=== PATIENT | female | born 1965 | race Two or more races ===

== ENCOUNTER 2023-09-18 13:45 | Emergency (ER) | payer OTHER ==
[~2023-09-18] VITALS: Ht 165.1 cm; Wt 83.9 kg
[~2023-09-18 13:45] MED LIST: MACROBID 100 M100 MG PO; SOTALOL120 MG; URIN D.S. TABLE1 TAB PO; WELLBUTRIN XL300 MG; WELLBUTRIN XL300 MG PO
[2023-09-18] MEDS ORDERED: SYNTHROID50 MCG (14:53)
[2023-09-18] MEDS ORDERED: FAMOTIDINE/PF 20 MG/2 ML VIAL IV ONE (16:45)
[2023-09-18 17:13] LABS: HEMATOCRIT 39.1 % (36.0-45.00); HEMOGLOBIN 13.4 g/dL (12.0-15.00); MEAN CELL VOLUME 91.8 fL (80.00-100.00); MEAN CORPUSCULAR HEMOGLOBIN 31.5 pg (27.00-32.0); MEAN CORPUSCULAR HGB CONC 34.3 g/dl (32.0-36.0); PLATELET COUNT 342 K/uL (150-450); RED BLOOD COUNT 4.25 M/uL (4.00-6.00); RED CELL DISTRIBUTION WIDTH 12.9 % (11.5-14.5)
[2023-09-18 17:54] LABS: ALBUMIN 3.6 gm/dL (3.4-5.0); BILIRUBIN TOTAL 0.26 mg/dL (0.3-1.2); CALCIUM 8.7 mg/dL (8.5-10.1); CREATININE SERUM 1.15 mg/dL (0.55-1.02); GFR 48.63; GLOBULINA 3.8 G/DL (2.4-3.5); POTASSIUM 4.14 mEq/L (3.5-5.1); TOTAL PROTEIN 7.4 gm/dL (6.4-8.2)
[2023-09-18 18:50] LABS: URINE APPEARANCE Clear; URINE BILIRRUBIN Negative (NEGATIVE); URINE BLOOD Negative; URINE COLOR Yellow; URINE GLUCOSE Negative (NEGATIVE); URINE LEUKOCYTE Small; URINE NITRATE Negative; URINE PROTEIN Negative (NEGATIVE); URINE UROBILINOGEN 0.2 E.U./dl
[2023-09-18 18:54] LABS: URINE BACTERIA 278.3 uL (0.0-1933); URINE EPITHELIAL CELLS 11.1 uL (0.0-38.8); URINE RBC 5.9 uL (0.0-20.8)
[2023-09-18] MEDS ORDERED: INTESTINEX680 M1 PO (19:54)
[2023-09-18] MEDS ORDERED: MACROBID 100 M100 MG PO (19:54)
[2023-09-18] MEDS ORDERED: PEPCID AC20 MG PO (19:55)
== END 2023-09-18 20:03 | disposition home or self-care (01) ==
LOC: ER 13:46
PROVIDERS: Nurse Practitioner Family
DX: N39.0 Urinary tract infection, site not specified (principal); R30.0 Dysuria; E03.9 Hypothyroidism, unspecified; Z88.0 Allergy status to penicillin